=== PATIENT | male | born 1955 | race Caucasian/White ===

== ENCOUNTER 2016-09-20 14:39 | Observation (INO) | payer OTHER ==
[~2016-09-20] VITALS: Ht 188 cm; Wt 97.5 kg
[2016-09-20 14:42] VITALS: BP 129/87; PULSE 100; RESP 14; O2SAT 99
--- NOTE | 2016-09-20 15:03 | ED.REPORT ---
HPI-Chest Pain 40 and Over Date of Service Sep 20, 2016 ED Provider: Anthony Slater DO Patient is a 61 year old male who presents to the ED complaining of worsening intermittent chest pressure onset 2 weeks ago. His pain lasts 5-15 minutes and presents when he is both resting and exerting himself. Associated symptoms include SOB and dizziness. He denies pain after eating, nausea, vomiting, diarrhea, fever, or any other symptoms. He has had a cold recently. He reports that he was diagnosed with angina when he was much younger. Nursing Notes Stated Complaint: CHEST PAIN Chief Complaint: Chest Pain Nursing Notes Reviewed: Yes Allergies: Coded Allergies: No Known Allergies (Unverified , 09/20/16) Scheduled Hydrochlorothiazide (Hydrochlorothiazide) 25 Mg Tablet 25 MG PO QAM Scheduled PRN Gabapentin (Gabapentin) 300 Mg Capsule 300 MG PO TID PRN PRN For Pain General Time Seen by MD: 15:00 Chief Complaint Chest pressure Hx Obtained From: Patient Arrived By: Walk-in Sudden in Onset?: Yes Onset Occurred: More than a week ago... (2 weeks) Symptom Duration: Intermittent Risk Factors )( CAD Risk Stratification Hypertension SmokingNo Diabetes mellitus, No Family history, No Hyperlipidemia Risk factors reviewed )( TAD Risk Stratification HypertensionNo Risk factors reviewed )( PE Risk Stratification No Previous DVT, No Previous PE, No Surgery Last 60 Days Risk factors reviewed Past Medical History Past Medical History Reports: GERD, Hypertension Past Surgical History Knee replacements Hernia repair Smoking History Former Smoker Social History Other Social History: Good social support, Local resident Ambulatory Status Independent Unable to Obtain History Family history Unable to Obtain Due to: Adopted Review of Systems Constitutional: Denies: Fever Respiratory: Reports: Shortness of breath Cardiovascular: Reports: Chest pain (Pressure ) GI: Denies: Diarrhea, Nausea, Vomiting Neurologic: Reports: Dizziness Complete sys rev & neg: except as marked. Physical Exam Initial Vital Signs Vital Signs (First) Date Time Temp Pulse Resp B/P Pulse Ox O2 Delivery O2 Flow Rate FiO2 09/20/16 14:42 36.2 100 14 129/87 99 Room Air Initial VS: Reviewed Head / Eyes: Atraumatic, Normocephalic Neck: Full range of motion Skin: Warm, Dry Neurologic: Alert, Oriented, Nonfocal Psychiatric: Mood/affect normal, Behavior normal, Normal thought content General/Constitutional: Awake, Alert, Well developed Respiratory / Chest: No respiratory distress Cardiovascular: Heart rate NL, Regular rhythm Abdomen: Soft, Non-tender Interpretation & Diagnostics Lab Results Interpretation Result Diagram: 09/20/16 1505 09/20/16 1505 Test 09/20/16 15:05 09/20/16 17:16 White Blood Count 8.9th/mm3 (3.8-10.1) Red Blood Count 5.13mil/mm3 (4.40-5.80) Hemoglobin 16.4g/dL (13.8-17.2) Hematocrit 47.4% (41.0-50.0) Mean Corpuscular Volume 92.4fL (81-100) Mean Corpuscular Hemoglobin 32.0pg (27.0-35.0) Mean Corpuscular Hemoglobin Concent 34.6% (32.0-37.0) Red Cell Distribution Width 13.8% (12.3-15.4) Platelet Count 192bil/L (150-400) Neutrophils (%) (Auto) 53.3% (40-74) Lymphocytes (%) (Auto) 38.2% (14-46) Monocytes (%) (Auto) 7.3% (4-12) Eosinophils (%) (Auto) 0.7% (0-5) Basophils (%) (Auto) 0.3% (0-3) Activated Partial Thromboplast Time 27.0sec (22.8-33.0) Sodium Level 136mEq/L (134-144) Potassium Level 4.2mEq/L (3.5-5.2) Chloride Level 96mEq/L (97-108) Carbon Dioxide Level 23mmol/L (18-29) Blood Urea Nitrogen 16mg/dL (8-27) Creatinine 0.85mg/dL (0.76-1.27) Estimat Glomerular Filtration Rate 98mL/min (>59) Glucose Level 97mg/dL (60-99) Calcium Level 9.5mg/dL (8.5-10.1) Total Bilirubin 0.7mg/dL (0.0-1.2) Aspartate Amino Transf (AST/SGOT) 29U/L (0-50) Alanine Aminotransferase (ALT/SGPT) 41U/L (0-44) Alkaline Phosphatase 72U/L (25-160) Total Protein 7.9g/dL (6.4-8.4) Albumin 4.9g/dL (3.4-5.0) Troponin T < 0.010ug/L (0.0-0.011) ECG Interpretation ECG Interpretation: Sinus rate 83 Inferior infarct, old Time: 15:08 Interpreted by: ED physician ECG Interpretation: Sinus rate 91 inferior Q waves in 3 and AVF Time: 17:09 Interpreted by: ED physician X-Ray Chest Interpretation Chest Xray Interpretation: IMPRESSION: No acute pulmonary process. Dictated by: Carmelina Lopez M.D. on 09/20/2016 at 16:57 Approved by: Carmelina Lopez M.D. on 09/20/2016 at 16:57 View: Portable, 1 view Interpretation / Wet Read by: Interpret - Radiologist Re-Eval/Medical Decision Med Decision/Clinical Course Heart Score 4 . Probable unstable angina. Patient had a recurrent episode while walking back from the restroom which was relieved after nitroglycerin. Patient will be heparinized. patient will be admitted Time of Eval: 17:05 Re-Evaluation/Progress Note: Rechecked patient. He had another episode of chest pressure. Time of Eval: 17:14 Re-Evaluation/Progress Note: Discussed plan for admission. Patient understands and agrees with plan. All questions addressed at this time. Time of Eval: 18:27 Patient Status: Moderate relief Re-Evaluation/Progress Note: Recheked patient. He pain is now a 1.5/10 Consultation #1: Referral / Consult Name: Slade Schneider MD Consulted With: Cardiology Call Returned at: 17:49 Section Housekeeper: Agrees with eval, Agrees with plan Note: Discussed patient's case. Agrees to consult Consultation #2: Referral / Consult Name: Maximilinao Tuttle MD Consulted With: Hospitalist Call Returned at: 18:59 Section Housekeeper: Will see patient, Agrees with eval, Agrees with plan, Accepts admit Note: Discussed patient's case. Accepts admit. Counseled Regarding: Diagnosis, Lab results, Need for admission Discharge & Departure Primary Impression: Chest pain Additional Impression: Unstable angina Disposition: ADMITTED TO HOSPITAL Referrals: Shayla Estrella (PCP) Crit Care Except Billable Proc Time Spent: 30-74 minutes Services Performed: Patient management by me, Time spent at bedside, Reviewing test results Critical Care Notes: See MDM Scribe Attestation Portions of this note were transcribed by Radha Muñoz. I, Dr. Slater personally performed the history, physical exam and medical decision-making; I reviewed and confirmed the accuracy of the information in the transcribed note. Signed by: Radha Muñoz 09/20/2016, 1906 copies to: Shayla Estrella Timothy S DO Sep 20, 2016 15:02 RADHA MUÑOZ Sep 20, 2016 15:51
[2016-09-20 15:08] LABS: BASOPHILS % (AUTO) 0.3 % (0-3); EOSINOPHILS % (AUTO) 0.7 % (0-5); MONOCYTES % (AUTO) 7.3 % (4-12); Mean Corpuscular Volume 92.4 fL (81-100); NEUTROPHILS % (AUTO) 53.3 % (40-74); Platelet Count 192 bil/L (150-400)
[2016-09-20 15:39] LABS: TROPONIN T < 0.010 ug/L (0.0-0.011)
[2016-09-20 15:47] LABS: Magnesium 1.9 mg/dL (1.6-2.6)
[2016-09-20] MEDS ORDERED: LidocaineVisc 2%:Antacid 1:1 10 mL Syringe PO ONE (15:50)
[2016-09-20 16:09] VITALS: BP 120/85; PULSE 84; RESP 25; O2SAT 99
--- NOTE | 2016-09-20 16:59 | DRSVH ---
PROCEDURE: X-RAY CHEST ONE VIEW, PORTABLE ([id number]) INDICATIONS: CHEST PAIN TECHNIQUE: One view of the chest was acquired. COMPARISON: None. FINDINGS: Surgical changes and devices: None. Lungs and pleura: No pleural effusions or pneumothorax. Lungs are clear. Mediastinum: Mediastinal contours appear normal. Heart size is normal. Bones and chest wall: No suspicious bony lesions. Overlying soft tissues appear unremarkable. IMPRESSION: No acute pulmonary process. Dictated by: Carmelina Lopez M.D. on 09/20/2016 at 16:57 Approved by: Carmelina Lopez M.D. on 09/20/2016 at 16:57
[2016-09-20] MEDS ORDERED: Heparin 25K Unit/500mL 0.45 NS 25,000 UNIT in IV Premix 1 EACH IV ONE (17:15)
[2016-09-20] MEDS ORDERED: Heparin 5,000 Unit/mL Inj IVPUSH ONE (17:15)
[2016-09-20] MEDS ORDERED: Nitroglycerin 2% 1 Gm Ointment TOPICAL ONE (17:15)
[2016-09-20] MEDS ORDERED: Ondansetron 2 mg/mL 2 mL Inj IVPUSH PRN ×3 (17:20→19:50)
[2016-09-20 17:24] VITALS: BP 104/80; PULSE 107; RESP 19; O2SAT 95
[2016-09-20] MEDS ORDERED: HYDR25TA4 PO (18:12)
[2016-09-20] MEDS ORDERED: GABA-502 PO (18:12)
[2016-09-20 18:24] VITALS: BP 102/63; PULSE 101; RESP 21; O2SAT 96
[2016-09-20] MEDS ORDERED: Alum-Mag Hydrox-Simeth 30 mL Suspension PO PRN ×2 (19:20→19:50)
[2016-09-20] MEDS ORDERED: Atropine 1 mg/10 mL (Code) Syringe IVPUSH PRN (19:50)
[2016-09-20] MEDS ORDERED: Polyethylene Glycol (PEG) 17 Gm Powder PO PRN (19:50)
[2016-09-20] MEDS ORDERED: Senna-Docusate 8.6-50 mg Tablet PO PRN (19:50)
[2016-09-20 20:12] VITALS: BP 114/77; PULSE 72; RESP 20; O2SAT 97
[2016-09-20 20:20] LABS: Creatine Kinase 89 U/L (21-232); Magnesium 1.8 mg/dL (1.6-2.6)
[2016-09-20] MEDS: 0.9% Sodium Chloride 1,000 ML IV SCH (20:25)
--- NOTE | 2016-09-20 22:07 | PCM.HPMED ---
Subjective Date of Service Sep 20, 2016 Primary Provider: Admitting Physician: Maximiliano Tuttle MD Primary Care Physician: Shayla Estrella Attending Physician: Maximiliano Tuttle MD Admit Status: From the Emergency Department Chief Complaint: Chest pressure History of Present Illness: 61-year-old male patient with a history of Tourette's( motor only), GERD and hypertension presented to the ER with complaint of chest tightness and chest pressure. Patient reports that for the past 2-3 weeks he has been having intermittent episodes of chest heaviness and pressure. Patient reports that the episodes are often worse at night, but occur throughout the day as well. Patient states that the episodes occur both at rest and with activity and are located throughout his chest but the pain/pressure is worse along his sternum. Patient reports that the episodes have been lasting 30-60 minutes. Patient reports associated symptoms with the episodes to include shortness of breath, diaphoresis, feeling very warm and flushed, and weakness following the episode. At the time of interview patient is denying any chest pain or pressure or shortness of breath. Patient denies any nausea, vomiting, diarrhea, myalgias, hematochezia, melena, hematochezia or hematuria. Patient states that he has no shortness of breath while supine, but notes that when he got up to go to the restroom he had some shortness of breath. Patient also reports that he had a very bad headache following the nitroglycerin, but states that this has been improving. While in the ER patient had a temperature 36.2 pulse 100 respiratory rate 14, blood pressure 129/87, pulse ox 99 on room air. Review of Systems: A comprehensive review of systems was conducted with the patient and found to be negative except as above in the History of Present Illness. Allergies Coded Allergies: No Known Allergies (Unverified , 09/20/16) Home Medications Hydrochlorothiazide Pain medication, patient unsure of name. PMH Hypertension Prediabetes GERD Diagnosed with angina in his 20s that resolved Tourette's-- motor only Surgical History Bilateral knee replacements Appendectomy Hernia repair Hemorrhoidectomy Spinal surgery Family History Patient was adopted and does not know his family's past medical history Social History Hx Alcohol Use: Yes (occasional beer or wine) Hx Substance Use: No Hx Tobacco Use: Yes (smoked for 40 years, 2-3 packs per day. Quit in 2006) Smoking Status: Former Smoker Years of Smokin Living Arrangement: with Family Exam Vital Signs Vital Sign - Last Date Time Temp Pulse Resp B/P Pulse Ox O2 Delivery O2 Flow Rate FiO2 09/20/16 20:12 36.7 72 20 114/77 97 Room Air Exam General: No acute distress, well-developed, well-nourished, appropriately interactive HEENT: Normocephalic, atraumatic. External ears without defect. Pupils equal, round, and reactive to light and accommodation. Moist conjunctivae. Oropharynx with moist mucosa. Neck: Supple with full range of motion.No lymphadenopathy Cardiovascular: Regular rate and rhythm with no murmurs, rubs, or gallops appreciated Pulmonary: Clear to auscultation bilaterally with no crackles, wheezes, or rhonchi. Normal respiratory effort with no use of accessory muscles. Abdomen: Bowel tones present. Soft, nontender, nondistended. Extremities: No clubbing, cyanosis, edema, appreciated. Skin: Normal temperature, turgor, and texture; no rash, ulcers, or subcutaneous nodules appreciated. Psychiatric: Normal mood and affect. Alert and oriented to person, place, and time. Neuro:Facial twitching noted on exam Lab and Diagnostics Result Diagram: 09/20/16 1505 09/20/16 1505 X-Rays, CTs and MRIs PROCEDURE: X-RAY CHEST ONE VIEW, PORTABLE ([id number]) INDICATIONS: CHEST PAIN TECHNIQUE: One view of the chest was acquired. COMPARISON: None. FINDINGS: Surgical changes and devices: None. Lungs and pleura: No pleural effusions or pneumothorax. Lungs are clear. Mediastinum: Mediastinal contours appear normal. Heart size is normal. Bones and chest wall: No suspicious bony lesions. Overlying soft tissues appear unremarkable. IMPRESSION: No acute pulmonary process. Dictated by: Carmelina Lopez M.D. on 09/20/2016 at 16:57 Approved by: Carmelina Lopez M.D. on 09/20/2016 at 16:57 Assessment & Plan 61-year-old male patient with a history of Tourette's( motor only), GERD and hypertension presented with complaint of chest tightness and chest pressure. Acute chest pain, present on admission ongoing - Pt presented with chest pressure that has been occurring intermittently for 2- 3 wks -In ER patient received, nitroglycerin, 324 mg of aspirin, heparin, morphine - Cardiac risk factors include hypertension and history of smoking. -ARNOL score 1, for severe angina in the preceding 24 hours - Pain relieved with nitro and morphine. These are available prn - Troponin has been negative x 2, continue to trend q 6 hrs - EKG in ER demonstrating normal sinus rhythm without any ST changes - ASA 81mg daily. - Lipid profile and hemoglobin A1c ordered - Stress test in the AM, due to knee injuries, pt unable to do exercise stress test - NPO after midnight for stress test - ECHO ordered for AM - EKG prn new episode of chest pain -Following evaluation, patient will likely need to be discharged on beta leticia , statin therapy, CLAY inhibitor, and aspirin therapy Chronic hypertension, present on admission ongoing -Pt is on hydrochlorothiazide for hypertension, we will hold this medication -Continue to monitor blood pressure Chronic back pain, present on admission, ongoing -Patient takes gabapentin, we will hold this medication at this time GERD, present on admission, ongoing -If needed will start patient on a PPI -No medications started at this time -Continue to monitor PCP: Shayla Orellana [facility] CODE STATUS: Full code DVT prophylaxis: SCDs Patient is admitted under observation status with expected length of stay less than 2 midnights due to severity of presenting symptoms, risk of adverse event, and complexity of treatment plan. VTE Prophylaxis: SCDs Resuscitation Status: CPR: Attempt Resuscitation Attending Statement The patient was seen and examined together with Dr. Valenzuela on 09/20 and I agree with the history, exam and plan as outlined in the note above. copies to: Shayla Estrella Tara L DO Sep 20, 2016 21:22 Kirk Bolanos MD Sep 20, 2016 22:42
[2016-09-21] MEDS: Sodium Chloride LOK Flush 10 mL Syringe IVFLUSH SCH ×3 (00:30→16:38)
[2016-09-21 00:50] LABS: Creatine Kinase 81 U/L (21-232)
[2016-09-21 01:15] VITALS: BP 109/69; PULSE 65; RESP 20; O2SAT 97
[2016-09-21 04:55] VITALS: BP 112/75; PULSE 73; RESP 20; O2SAT 98
[2016-09-21 05:47] VITALS: PULSE 66
--- NOTE | 2016-09-21 06:22 | NUR ---
Admit Admitted to 3014 from ED via stretcher. Able to ambulate on arrival. RA without c/o SOB. Tele SR with reports of 1/10 chest pressure which patient states has not resolved from ED but does not want nitro or morphine for. c/o URENA x2 this shift for which prn APAP was administered and effective after second dose. Heparin gtt initiated in ED discontinued per MD. NS @ 80ml/hr per orders. NPO @ midnight. Strong steady gait without c/o dizziness. Personal belongings at bedside per patient request. Oriented to call light use with return demonstration.
[2016-09-21 07:07] LABS: BASOPHILS % (AUTO) 0.3 % (0-3); EOSINOPHILS % (AUTO) 1.4 % (0-5); MONOCYTES % (AUTO) 7.8 % (4-12); Mean Corpuscular Hemoglobin 32.4 pg (27.0-35.0); Mean Corpuscular Volume 95.1 fL (81-100); NEUTROPHILS % (AUTO) 42.4 % (40-74); Platelet Count 164 bil/L (150-400)
[2016-09-21] MEDS: 0.9% Sodium Chloride 1,000 ML IV SCH (08:05)
[2016-09-21 09:00] VITALS: PULSE 64
--- NOTE | 2016-09-21 10:31 | CONS ---
[address] [address] CONSULTATION REPORT PATIENT: DIMITRY MERCADO : 1955 MR#: [id number] ADMIT: 09/20/2016 JOB ID: [id number] DATE OF SERVICE: 09/21/2016 CARDIOLOGY CONSULTATION: REASON FOR CONSULT: For the evaluation of chest pain. CHIEF COMPLAINT: Recurrent chest pain from last 2-3 weeks. PRESENT HISTORY: This 61-year-old pleasant male who has a history of essential hypertension, hyperlipidemia, pre diabetes, severe GERD, Tourette syndrome with tics, history of murmur diagnosed in childhood got admitted to the emergency department because of above-mentioned chief complaint. According to the patient from last 2-3 weeks, he is having intermittent chest discomfort which is localized to the lower part of his sternum. It does not radiate. It is not very bad but sometimes it becomes very intense. No specific precipitating or relieving factors other than sometimes it gets worse with meal as well. It usually happens in the night-time during supine position or sitting position. According to him, walking does not make it worse. Sometimes he gets lightheadedness, nauseated but not all the time. Sometimes he gets sweating and some shortness of breath, but it does not happen all the time. He got admitted through the emergency department. In the hospital he has ruled out for acute myocardial infarction by serial cardiac markers. The patient denies any known history of myocardial infarction or congestive heart failure or rheumatic heart disease or congenital heart disease. But according to him, when he was a kid he was told that he has a heart murmur. He has not seen a physician or industrial methods consultant for many years. He denies any recent cardiac workup. There is a questionable history of angina in childhood. The patient denies any fever, cough, expectoration or PND, orthopnea or lower extremity swelling or claudication, pain or abdominal aortic aneurysm or stroke-like symptoms. He has a history of intermittent dysphagia. PAST MEDICAL HISTORY: 1. History of GERD. 2. Essential hypertension. 3. Hyperlipidemia. 4. Pre diabetes. 5. Tourette syndrome. PAST SURGICAL HISTORY: 1. Bilateral knee replacement surgery. 2. Appendicectomy. 3. Hernia repair. 4. Hemorrhoidectomy. 5. Spinal surgery. FAMILY HISTORY: He is adopted. SOCIAL HISTORY: He is an ex-smoker, smoked for 40 years. Quit in 2006. Denies any alcohol abuse. ALLERGIES: No known allergies. HOME MEDICATION: He was on hydrochlorothiazide and pain medication. REVIEW OF SYSTEMS: Ten point review of systems were obtained and negative except as stated above. PHYSICAL EXAMINATION: Blood pressure 112/75, heart rate 73, respiratory rate 20, oxygen saturation on room air 98%. HEENT: No significant anemia, jaundice. Neck: No apparent JVP or carotid bruit. Chest: No obvious crepitation or rhonchi. CVS: S1, S2 normal. No S3, no S4. I do not appreciate any significant murmur. Abdomen: No obvious pulsatile mass. No obvious hepatosplenomegaly. Extremities: No significant pedal edema. Vascular: No evidence of critical limb ischemia. ROLL ON WORKER: Alert, oriented to time, place and person. No obvious motor or sensory deficit. The patient has facial tics. LABORATORIES: Sodium 139, potassium 4.3, BUN 18, creatinine 0.89. Hemoglobin A1c 5.6. Magnesium 1.8. Calcium 8.9. Normal serial CPK, MB, as well as troponin. Triglyceride 209. Total cholesterol 189, LDL of 118, HDL 29, TSH 2.1. Hemoglobin 14, platelets 164, WBC 8.6. X-ray chest: No acute pathology. EKG on September 21, 2016 at 8 a.m. revealed sinus rhythm with sinus bradycardia, rate 58, without any significant ST-T changes. QTc is 415 msec. SC interval 174 msec. QRS is not wide. The patient has asymmetrical T-wave inversion in V1. ASSESSMENT/PLAN: Prolonged intermittent chest pain with some atypical and some typical components for angina. The patient has ruled out for acute myocardial infarction by serial cardiac markers. Serial CPK, MB, troponin within normal limits. EKG is not convincing for ongoing ischemia. He has some tenderness in the lower part of the sternum and chest pain is reproducible. He has significant GERD as well as intermittent dysphagia along with history of hypertension, hyperlipidemia. His CAD risk factors include age, sex, hypertension, hyperlipidemia, etc. Clinically he appears compensated. At this point of time, we will recommend echocardiogram to rule out any structural heart disease as well as exercise perfusion stress test for CAD, diagnosis and risk stratification. As he has ruled out, will recommend discontinuation of heparin. Continue anti-platelet therapy. After stress test, add beta leticia. Consider statin. Further plan will be based on the result of above-mentioned diagnostic tests. Discussed the plan with the patient. He agrees and concurs. Thanks for the cardiology consult Overall time spent today about 60 minutes.
--- NOTE | 2016-09-21 10:46 | NUR ---
Social Work: Screening Data: Pt is a 61 y/o male admitted for unstable angina. Pt's PCP is Dr Estrella, pt's insurance is [employer]. EMR reviewed. No d/c planning needs identified at this time. SPARE PERSON will continue to follow if needs arise. Assessment: Pt who is independent at baseline. Plan: Pt will d/c home via POV when medically stable. No d/c planning needs identified at this time. SPARE PERSON will continue to follow if needs arise. BRITTANI Arenas
[2016-09-21 11:38] LABS: APPEARANCE,URINE HAZY (CLEAR,HAZY); COLOR,URINE YELLOW (YELLOW); OCCULT BLOOD,URINE NEGATIVE (NEGATIVE)
[2016-09-21 11:39] LABS: UROBILINOGEN,URINE NORMAL (NORMAL)
--- NOTE | 2016-09-21 13:40 | DRSVH ---
[facility] [address] [place] [address] Echocardiogram Report Name: DIMITRY MERCADO LStudy Date: 09/21/2016 Height: 75 in Hospital Exam Location: [facility] Weight: 219 lb Gender: Male BSA: 2.3 m2 : 1955 Age: 61 yrs BP: 112/75 mmHg Reason For Study: Chest pain Ordering Physician: Performed By: Leandra Grajeda Referring Physician: [place] Estrella Interpretation Summary The left ventricle is normal in size. The ejection fraction is estimated to be 60-65%. There is apical lateral wall hypokinesis. The right ventricle is mildly dilated. The right ventricular systolic function is normal. There is mild to moderate tricuspid regurgitation. The right ventricular systolic pressure is estimated at 43 mmHg assuming a right atrial pressure of 3 mm Hg. The aortic root is mildly dilated. The ascending aorta is moderately enlarged. Procedure: A two-dimensional transthoracic echocardiogram with color flow and Doppler was performed. The study quality was technically adequate. There is no prior echocardiogram noted for this patient. The heart rate ranged between 68-82 bpm during the study. Left Ventricle: The left ventricle is normal in size. Proximal septal thickening is noted. There is no echo evidence for significant left ventricular outflow tract obstruction. There is no thrombus. The ejection fraction is estimated to be 60-65%. There is apical lateral wall hypokinesis. Spectral Doppler of the mitral valve is reversed, with an E/A wave ratio < 1.0. Right Ventricle: The right ventricle is mildly dilated. The right ventricular systolic function is normal. Atria: Borderline left atrial enlargement. Right atrial size is normal. The interatrial septum is intact with no evidence for an atrial septal defect. Mitral Valve: The mitral valve leaflets appear mildly thickened, but open well. The mitral valve leaflets are mildly calcified. There is trace mitral regurgitation. Aortic Valve: The aortic valve is trileaflet. The aortic valve opens well. There is mild aortic valve sclerosis. There is no aortic valve stenosis. No aortic regurgitation is present. Tricuspid Valve: Tricuspid leaflets are thickened. There is mild to moderate tricuspid regurgitation. The right ventricular systolic pressure is estimated at 43 mmHg assuming a right atrial pressure of 3 mm Hg. Pulmonic Valve: The pulmonic valve is not well seen, but is grossly normal. There is mild pulmonic regurgitation. Great Vessels: The aortic root is mildly dilated. The ascending aorta is moderately enlarged. The IVC is of normal diameter and collapses greater than 50% with a sniff. This suggests a low right atrial pressure of 3 mm Hg. Pericardium/ Pleura There is no pericardial effusion. There is an anterior echo-free space consistent with a fat pad. There is no pleural effusion. MMode/2D Measurements & Calculations LVIDd: 5.5 cm LA dimension: 4.1 cm RA long axis Ao root diam LVIDs: 3.6 cm FS: 34.5 % LA A2 area: 18.3 cm RA area Aortic Jxn: 3.9 cm IVSd: 0.81 cm LA A4 area: 16.8 cm asc Aorta Diam LVPWd: 0.80 cm LA length (vol) : 19.1 cm RA vol Ao Arch Diam (Prox LA vol: 51.4 ml : 55.6 ml Trans): 3.1 cm LA vol index RA : 24.4 mm/ RVDd major IVC diam: 1.9 cm : 5.5 cm LV ledesma. diameter/BSA LV sys. diameter/BSA RVD1 (basal) RVD2 (mid): 4.3 cm (cm/m^2): 2.4 (cm/m^2): 1.6 Doppler Measurements & Calculations Ao V2 max MV E max gary MV E/A: 0.96 TR max gary : 109.9 cm/sec : 68.9 cm/sec Med Peak E' Gary : 315.3 cm/sec Ao max PG MV A max gary TR max PG : 4.8 mmHg : 71.7 cm/sec E/E' med: 10.6 : 39.8 mmHg Ao mean PG MV P1/2t: 56.0 msec Lat Peak E' Gary PA V2 max : 2.7 mmHg : 74.3 cm/sec E/E' lat: 7.5 PA mean PG E/e' average: 9.0 MV A dur: 0.14 sec PA Accel Time : 0.07 sec MV dec time MV P1/2t max gary Ao V2 mean PA V2 mean : 0.18 sec : 76.0 cm/sec : 48.4 cm/sec MVA(P1/2t): 3.9 cm2 Ao V2 VTI: 26.7 cm Reading Physician:CAMRYN
--- NOTE | 2016-09-21 13:42 | NUR ---
Off Unit: Patient transported off unit to [facility] @ approx 1300 via wheelchair accompanied by transporter. office technology instructor notified. Patient pre-medicated with Ativan prior to exam.
--- NOTE | 2016-09-21 16:11 | DRSVH ---
PROCEDURE: 1 DAY TREADMILL STRESS TEST Rest and exercise myocardial perfusion SPECT with gated imaging and ejection fraction RADIOPHARMACEUTICAL: 8.61 mCi Tc-99m tetrafosmin IV at rest and 26.6 mCi Tc-99m tetrafosmin IV at pea k exercise. [id number] was performed. INDICATIONS: CHEST PAIN. TECHNIQUE: Radiopharmaceutical was injected at peak stress test, and also at rest. SPECT images wer e obtained. SPECT myocardial perfusion images were displayed in short axis, horizontal long axis, an d vertical long axis views. Gated images were reviewed using Auto[employer] software. COMPARISON: None. CARDIAC STRESS: A standard Gurinder treadmill exercise tolerance test was performed by the patient under the supervision of an attending staff. The patient exercised for 4 minutes and 10 seconds; functional aerobic impai rment (MISAEL) is +47 %. Hemodynamic data: There is normal blood pressure and heart rate response to exercise stress. Patien t achieved 91% of maximum predicted heart rate at peak exercise. Symptoms: Patient complained of chest discomfort during stress test. Chest pain develop within the [place]cilla bsternal area and it was a 3-4/10 which gradually improved by the end of recovery. EKG: No diagnostic EKG changes of ischemia; no ectopy. FINDINGS: Raw data: There is good myocardial labeling by radiotracer. No significant motion artifacts. Left ventricle function: Gated images demonstrate normal left ventricle wall thickening. No segment al wall motion abnormality. The left ventricle resting end-diastolic volume is 73 mL. Left ventricl e stress ejection fraction is 74%; normal values are above 45%. Myocardial perfusion: There is normal distribution of activity in the left ventricular myocardium. No fixed or reversible perfusion defects. IMPRESSION: This is a normal myocardial perfusion study. LV ejection fraction is within normal limit s. LV wall motion is normal. Patient chest pain during trauma studies most likely noncardiogenic. Str ess EKG was unremarkable. Patient's functional aerobic impairment score was +47%. Dictated by: Velasquez Acevedo Jr., M.D. on 09/21/2016 at 15:49 Approved by: Velasquez Acevedo Jr., M.D. on 09/21/2016 at 16:09
--- NOTE | 2016-09-21 16:43 | PCM.DIMED ---
Discharge Instructions Date of Service Sep 21, 2016 Dates of Hospitalization Sep 20, 2016 at 17:43 Discharge Diagnosis Discharge Diagnosis chest pain, likely GI origin Medication Instructions consider taking pain pill such as ibuprofen or alleve for short time, take it with food. Adverse effect of this pain medication addressed explicitly. Diet Low fat, Low Sodium, Heart Healthy Activity No restrictions Call your provider Chest pain Patient Instructions You were hospitalized with chest pain, concerning for heart attack, however, all workups showed no evidence of heart attack. Please follow up with your doctor for further evaluation of your chest pain, which possibly related to your GI tract, heart burn, peptic ulcer, esophageal spasm. Please consider stopping smoking as it's related to multiple significant illness such as cancers, cardiovascular and lung disease as we discussed. Follow-up plan Please follow up in 2weeks Follow-up Provider: Shayla Estrella Follow-up with PCP in: 2 weeks Nat Soria MD Sep 21, 2016 14:29
--- NOTE | 2016-09-21 18:34 | NUR ---
Discharge: Patient discharged to home @ approx 1815. IV d/c's intact, telemetry removed, monitoring coordinator notified. Personal belongings sent home with patient. Reviewed home medications, d/c instruction and follow up appointment. Verbalized understanding. Ambulated to main entrance with this RN and patients .
--- NOTE | 2016-09-21 19:41 | NUR ---
GI Patient cardiac diagnostics neg. Patient was informed that since all cardiac assessments were neg chest pain is most likely due to GI. explained to patient the physiology of GI chest pain and instructed patient to take Tylenol during episodes.
--- NOTE | 2016-09-22 14:24 | PCM.DC.MED ---
Discharge Summary Date of Service Sep 21, 2016 Dates of Hospitalization Date of Hospital Admission Sep 20, 2016 at 17:43 Date of Discharge: Sep 21, 2016 Providers: Admitting Physician: Maximiliano Tuttle MD Primary Care Physician: Shayla Estrella Attending Physician: Maximiliano Tuttle MD Diagnosis at Time of Discharge Diagnosis at Time of Discharge chest pain, likely GI origin HTN, back pain GERD Consultations cardiology Procedures XRay, CTs & MRIs PROCEDURE: X-RAY CHEST ONE VIEW, PORTABLE ([id number]) INDICATIONS: CHEST PAIN TECHNIQUE: One view of the chest was acquired. COMPARISON: None. FINDINGS: Surgical changes and devices: None. Lungs and pleura: No pleural effusions or pneumothorax. Lungs are clear. Mediastinum: Mediastinal contours appear normal. Heart size is normal. Bones and chest wall: No suspicious bony lesions. Overlying soft tissues appear unremarkable. IMPRESSION: No acute pulmonary process. Dictated by: Carmelina Lopez M.D. on 09/20/2016 at 16:57 Approved by: Carmelina Lopez M.D. on 09/20/2016 at 16:57 Brief History HPI obtained by Dr. Tuttle on 09/20 61-year-old male patient with a history of Tourette's( motor only), GERD and hypertension presented to the ER with complaint of chest tightness and chest pressure. Patient reports that for the past 2-3 weeks he has been having intermittent episodes of chest heaviness and pressure. Patient reports that the episodes are often worse at night, but occur throughout the day as well. Patient states that the episodes occur both at rest and with activity and are located throughout his chest but the pain/pressure is worse along his sternum. Patient reports that the episodes have been lasting 30-60 minutes. Patient reports associated symptoms with the episodes to include shortness of breath, diaphoresis, feeling very warm and flushed, and weakness following the episode. At the time of interview patient is denying any chest pain or pressure or shortness of breath. Patient denies any nausea, vomiting, diarrhea, myalgias, hematochezia, melena, hematochezia or hematuria. Patient states that he has no shortness of breath while supine, but notes that when he got up to go to the restroom he had some shortness of breath. Patient also reports that he had a very bad headache following the nitroglycerin, but states that this has been improving. While in the ER patient had a temperature 36.2 pulse 100 respiratory rate 14, blood pressure 129/87, pulse ox 99 on room air. Hospital Course 61-year-old male patient with a history of Tourette's( motor only), GERD and hypertension presented with complaint of chest tightness and chest pressure. Acute chest pain, likely GI origin, In ER patient received, nitroglycerin, 324 mg of aspirin, heparin, morphine, ARNOL was 1, EKG showed no ischemic chg, serial trops were negative. TTE showed normal EF but apical hypokinesis, pt underwent nuclear treadmill test, which showed normal perfusion. pt remained HD stable, relatively asymptomatic, given hx of GERD, thought to be related to GI tract, possible JOSE ROBERTO, pt deemed safe for d/c chronic, stable during the course HTN, back pain GERD Exam Vital Signs (Last) Date Time Temp Pulse Resp B/P Pulse Ox O2 Delivery O2 Flow Rate FiO2 09/21/16 09:00 64 09/21/16 04:55 36.4 20 112/75 98 Room Air 09/21/16 01:15 2.50 Exam NAD, comfortably laying down on the bed no JVD, MMM, no LAD RRR, nl s1, s2 no mrg CTAB, no w,c S,ND,NT,normoactive BS+ warm, no edema, pulses 2/2 Test 09/20/16 15:05 09/20/16 17:16 09/20/16 18:32 09/20/16 23:59 Hemoglobin A1c 5.6% (4.8-5.6) Total Bilirubin 0.7mg/dL (0.0-1.2) Aspartate Amino Transf (AST/SGOT) 29U/L (0-50) Alanine Aminotransferase (ALT/SGPT) 41U/L (0-44) Alkaline Phosphatase 72U/L (25-160) Total Protein 7.9g/dL (6.4-8.4) Albumin 4.9g/dL (3.4-5.0) Magnesium Level 1.8mg/dL (1.6-2.6) Thyroid Stimulating Hormone (TSH) 2.150uIU/mL (0.450-4.500) Urine Color Yellow (YELLOW) Urine Appearance Hazy (CLEAR,HAZY) Urine pH 6.0 (5.0-8.0) Urine Specific [place] 1.020 (1.003-1.035) Urine Protein Negativemg/dL (NEG,TRACE) Urine Glucose (UA) Negativemg/dL (NEGATIVE) Urine Ketones Negativemg/dL (NEGATIVE) Urine Occult Blood Negative (NEGATIVE) Urine Nitrite Negative (NEGATIVE) Urine Bilirubin Negative (NEGATIVE) Urine Urobilinogen Normalmg/dL (NORMAL) Urine Leukocyte Esterase Negative (NEGATIVE) Urine RBC 0-2/hpf (0-2) Urine WBC 0-5/hpf (0-5) Urine Epithelial Cells Occasional/hpf (NONE-MOD) Urine Crystals None seen (NONE SEEN) Urine Bacteria Few/hpf (NONE-FEW) Urine Hyaline Casts None/lpf (NONE) Urine Granular Casts None seen (NONE SEEN) Urine Waxy Casts None seen (NONE SEEN) Urine Red Blood Cell Casts None seen (NONE SEEN) Urine White Blood Cell Casts None seen (NONE SEEN) Urine Mucus Present (None Seen) Urine Trichomonas None seen (NONE SEEN) Urine Yeast None (NONE SEEN) Urinalysis Comment None Urine Culture Reflexed Not indicated Hold Urine Received (Received) Activated Partial Thromboplast Time 34.3sec (22.8-33.0) Total Creatine Kinase 81U/L (21-232) Creatine Kinase MB 1.3ng/mL (0.0-10.4) Creatine Kinase MB % % (0.0-5.0) Troponin T 0.010ug/L (0.0-0.011) Test 09/21/16 06:20 White Blood Count 8.6th/mm3 (3.8-10.1) Red Blood Count 4.32mil/mm3 (4.40-5.80) Hemoglobin 14.0g/dL (13.8-17.2) Hematocrit 41.1% (41.0-50.0) Mean Corpuscular Volume 95.1fL (81-100) Mean Corpuscular Hemoglobin 32.4pg (27.0-35.0) Mean Corpuscular Hemoglobin Concent 34.1% (32.0-37.0) Red Cell Distribution Width 13.9% (12.3-15.4) Platelet Count 164bil/L (150-400) Neutrophils (%) (Auto) 42.4% (40-74) Lymphocytes (%) (Auto) 48.0% (14-46) Monocytes (%) (Auto) 7.8% (4-12) Eosinophils (%) (Auto) 1.4% (0-5) Basophils (%) (Auto) 0.3% (0-3) Sodium Level 139mEq/L (134-144) Potassium Level 4.3mEq/L (3.5-5.2) Chloride Level 101mEq/L (97-108) Carbon Dioxide Level 28mmol/L (18-29) Blood Urea Nitrogen 18mg/dL (8-27) Creatinine 0.89mg/dL (0.76-1.27) Estimat Glomerular Filtration Rate 93mL/min (>59) Glucose Level 101mg/dL (60-99) Calcium Level 8.9mg/dL (8.5-10.1) Triglycerides Level 209mg/dL (0-149) Cholesterol Level 189mg/dL (100-199) LDL Cholesterol, Calculated 118.200mg/dL (0-99) VLDL Cholesterol 41.800mg/dL HDL Cholesterol 29mg/dL (>39) Cholesterol/HDL Ratio 6.52 (0.0-4.4) Discharge Medications Discharge Medications Hydrochlorothiazide (Hydrochlorothiazide) 25 Mg Tablet 25 MG PO QAM (Reported) As needed Gabapentin (Gabapentin) 300 Mg Capsule 300 MG PO TID PRN PRN For Pain (Reported ) Additional med instructions consider taking pain pill such as ibuprofen or alleve for short time, take it with food. Adverse effect of this pain medication addressed explicitly. Followup Plan Disposition: home Follow-up plan Please follow up in 2weeks Discharge Diet: Low fat, Low Sodium, Heart Healthy Discharge Activity: No restrictions Patient Instructions You were hospitalized with chest pain, concerning for heart attack, however, all workups showed no evidence of heart attack. Please follow up with your doctor for further evaluation of your chest pain, which possibly related to your GI tract, heart burn, peptic ulcer, esophageal spasm. Please consider stopping smoking as it's related to multiple significant illness such as cancers, cardiovascular and lung disease as we discussed. Follow-up Provider: Shayla Estrella Follow-up with PCP in: 2 weeks Time spent 65min Nat Soria MD Sep 22, 2016 14:24
== END 2016-09-21 18:18 | disposition home or self-care (01) ==
LOC: SED 14:39 → UNDOADMOB 17:43 → PCC 17:43 → MPC 17:43
PROVIDERS: ADMIT Internal Medicine; ATTEND Hospitalist
DX: R07.9 Chest pain, unspecified (principal); I10 Essential (primary) hypertension; M54.9 Dorsalgia, unspecified; K21.9 Gastro-esophageal reflux disease without esophagitis; R73.03 Prediabetes; F95.2 Tourette's disorder; Z96.653 Presence of artificial knee joint, bilateral; Z87.891 Personal history of nicotine dependence
CPT/HCPCS: 36415; 71010; 78452; 80048; 80053; 80061; 81000; 82550; 82553; 83036; 83735; 84443; 84484; 85025; 85730; 93005; 93017; 96374; 96375; 99291; A9502; C8929; G0378; J1644; J2060; J2270; J2405; J7030